=== PATIENT | female | born 1940 | race Native Hawaiian/Other Pacific Islander ===

== ENCOUNTER 2016-10-08 10:46 | Outpatient (CLI) | payer OTHER | END 2016-10-08 19:08 | disposition home or self-care (01) | LOC: MAMMO 10:46 | DX: Z12.31 Encounter for screening mammogram for malignant neoplasm of breast (principal) | CPT/HCPCS: G0202-TC ==

== ENCOUNTER 2018-02-16 13:16 | Outpatient (CLI) | payer OTHER | END 2018-02-16 19:42 | disposition home or self-care (01) | LOC: MAMMO 13:16 | DX: Z12.31 Encounter for screening mammogram for malignant neoplasm of breast (principal) ==

== ENCOUNTER 2018-07-08 09:40 | Outpatient (CLI) | payer OTHER | END 2018-07-08 22:38 | disposition home or self-care (01) | LOC: MRI 09:40 | DX: R41.3 Other amnesia (principal) | CPT/HCPCS: 36415; 82607; 82746; 84443; 85651; 86038 ==

== ENCOUNTER 2019-01-02 08:29 | Outpatient (CLI) | payer OTHER | END 2019-01-02 23:18 | disposition home or self-care (01) | LOC: US 08:29 | DX: R10.13 Epigastric pain (principal) ==